=== PATIENT | female | born 1945 | race Hispanic/Latino ===

== ENCOUNTER 2021-01-02 11:17 | Outpatient (CLI) | payer MEDICARE | END 2021-01-02 11:18 | disposition home or self-care (01) | LOC: LAB 11:17 | PROVIDERS: ATTEND Internal Medicine | DX: J84.9 Interstitial pulmonary disease, unspecified (principal); E78.00 Pure hypercholesterolemia, unspecified; E03.9 Hypothyroidism, unspecified; R76.11 Nonspecific reaction to tuberculin skin test without active tuberculosis; Z68.39 Body mass index [BMI] 39.0-39.9, adult | CPT/HCPCS: 88112; 88312 ==